=== PATIENT | male | born 1940 | race Caucasian/White ===

== ENCOUNTER 2016-12-04 11:52 | Emergency (ER) | payer OTHER ==
--- NOTE | 2016-12-04 13:04 | ED CLINICAL REPORT ---
Clinical Report - Physicians/Mid Levels [facility] [address] [place] [address] 12/04/2016 11:55 Patient: TOBI OKEEFE Time Seen: 12:08; initial patient contact. Arrived- By private vehicle. Historian- patient. HISTORY OF PRESENT ILLNESS Chief Complaint: SORE THROAT. This started about 2 days ago and is still present. It was gradual in onset and has been intermittent. Pain described as mild. The patient has had a sore throat. No mouth sores or nasal discharge or congestion. Similar symptoms previously: None. Recent medical care: Not recently seen/assessed. REVIEW OF SYSTEMS No fever, difficulty breathing, chest pain, headache or skin rash. He has had a cough. All systems otherwise negative, except as recorded above. PAST HISTORY Aortic Aneurysm. Tinnitus. URI. COPD - Chronic Obstructive Pulmonary Disease. Congestive Heart Failure. SURGERIES: Aneurysm, abd . Arm lt forarm . Back Surgery. Medications: None. Allergies: Penicillins. Tannic Acid. SOCIAL HISTORY Current every day smoker. Occasional alcohol use. No drug use. ADDITIONAL NOTES The nursing notes have been reviewed. PHYSICAL EXAM Vital Signs: 12/04/2016 12:06 BP: 153/74. HR: 58. RR: 16. O2 saturation: 98%. Temp: 97.5 F. Pain level now: 10. Have been reviewed. Hypertensive. Bradycardic. Respiratory rate normal. Temperature normal. Oxygen saturation normal. Appearance: Alert. No acute distress. Head: Normal external inspection. ENT: Ears normal. Nose normal. Mild generalized pharyngeal erythema. No trismus present. No mouth ulcerations. Neck: Trachea midline. No adenopathy. Thyroid normal. Neck supple. CVS: Normal heart rate and rhythm. Heart sounds normal. Respiratory: No respiratory distress. Breath sounds normal. Skin: No rash. Neuro: Oriented X 3. LABS, X-RAYS, AND EKG Laboratory Tests: Culture, Strep Screen: (LATA: 12/04/2016 12:20) ( MsgRcvd 12/04/2016 12:44) Final results Test Result Flag Units (Reference) RAPID STREP SCREEN - THROAT DATE: 12/04/16 NEGATIVE SCREEN: RAPID STREP SCREEN NEGATIVE; CONFIRMATION TO FOLLOW . PROGRESS AND PROCEDURES Disposition: Discharged home in good condition. Condition: good. CLINICAL IMPRESSION Acute viral pharyngitis INSTRUCTIONS Drink plenty of fluids. Do not smoke- provided smoking cessation materials. Seek medical help to quit smoking. (Take Motrin every 6 hours as needed for the pain). Your Current Medications: CONTINUE TAKING THE FOLLOWING MEDICATIONS: None*. Follow-up: Follow up with your doctor in about two days if not better. Call for an appointment. Screening today revealed the patient's blood pressure to be in the hypertensive range. The patient should follow up with a primary care provider for blood pressure management. (Electronically signed by Jagdish Patino Dr. 12/04/2016 22:25)
--- NOTE | 2016-12-04 13:04 | ED NURSING NOTES ---
Clinical Report - Nurses [facility] [address] [place] [address] 12/04/2016 11:55 [id number] TRI[facility] Triage time 12:06. Acuity: LEVEL 3. Chief Complaint: SORE THROAT and ("feels like a gland, deep in the muscle', sometimes it makes me hurt when I swallow".). Alert. No acute distress. SEPSIS SCREEN: Sepsis Screen: negative. Negative (no infection suspected/documented). ZOE COMA SCORE: Zoe Coma Scale: 15- eyes open spontaneously (4); best verbal response- oriented x 4 (5); best motor response- obeys commands (6). --12:15 Eunice Mendoza R.N. 12:06 12/04/16. BP: 153/74. HR: 58. RR: 16. O2 saturation: 98%. Temp: 97.5 F. Pain level now: 05/31. --12:15 Eunice Mendoza R.N. 12:06 12/04/16. BP: 153/74. HR: 58. RR: 16. O2 saturation: 98%. Temp: 97.5 F. Pain level now: 05/31. --12:15 Eunice Mendoza R.N. Weight: 31.7 kg stated. Height/Length: 68 inches Per Patient. BMI: 10.6. --12:09 Eunice Mendoza R.N. Medications None. --12:11 Eunice Mendoza R.N. Allergies Penicillins. Tannic Acid. --12:11 Eunice Mendoza R.N. Medication/allergy information source: the patient. --12:15 Eunice Mendoza R.N. History Arrived by private vehicle. Historian: patient. Primary physician ([facility]). Onset. (Since monday morning.). ( Rt side throat). SOCIAL HX: Heavy tobacco smoker- less than 1 pack per day. Occasional alcohol use. No drug use. FALL RISK ASSESSMENT: Fall risk assessment completed. No fall risk identified. NUTRITIONAL RISK ASSESSMENT: The nutritional risk assessment revealed no deficiencies. FUNCTIONAL ASSESSMENT: Functional assessment: no impairments noted. LEARNING NEEDS ASSESSMENT: The learning needs assessment revealed no barriers. SKIN INTEGRITY ASSESSMENT: Skin integrity risk assessment completed. No skin integrity risk identified. --12:15 Eunice Mendoza R.N. PROBLEMS: Aortic Aneurysm. Tinnitus. URI. COPD - Chronic Obstructive Pulmonary Disease. Congestive Heart Failure. --12:13 Eunice Mendoza R.N. ADDITIONAL SURGERIES: Aneurysm, abd . Arm lt forarm . Back Surgery. --12:13 Eunice Mendoza R.N. Interventions ID band on patient. To room. --12:15 Eunice Mendoza R.N. PHYSICAL ASSESSMENT Ambulatory to room. Patient gowned. GENERAL / NEURO / PSYCH: Alert. Oriented X 4. Appears in pain and anxious. HEENT: Mucous membranes are pink. RESPIRATORY: Respirations not labored. CVS: Capillary refill less than 2 seconds. SKIN: Skin is warm and dry. Normal skin turgor. --12:15 Eunice Mendoza R.N. NURSING PROGRESS NOTES Patient gowned. Head of bed elevated. Two patient identifiers checked. Call light placed in reach. Side rails up x 2. Bed placed in lowest position. Brakes of bed on. Patient ready for evaluation. --12:16 Eunice Mendoza R.N. DISPOSITION / DISCHARGE 13:05. Condition at departure: unchanged. No learning barriers present. Discharge instructions provided and reviewed with the patient. Patient verbalized understanding. Written instructions provided in [place]. The patient was discharged home. He left the Emergency Department ambulatory and via private vehicle. Patient driving. Medication list reviewed and validated. --13:28 Eunice Mendoza R.N. 13:05 12/04/16. BP: 132/69. HR: 89. RR: 18. O2 saturation: 97% on room air. Temp: deferred. Pain level now: 07/01. 12:06 12/04/16. BP: 153/74. HR: 58. RR: 16. O2 saturation: 98%. Temp: 97.5 F. Pain level now: 05/31. --13:28 Eunice Mendoza R.N. Locked/Released at 12/04/2016 13:28 by Eunice Mendoza R.N.
--- NOTE | 2016-12-04 13:04 | ED ORDER SUMMARY ---
..... Patient: TOBI OKEEFE OrderSheet [facility] VisitID: [id number] [address] [place] [address] 76y, M Registration Date/Time: 12/04/2016 ORDER SHEET Weight: 31.7 kg (stated) Allergies: Penicillins, Tannic Acid GENERAL ORDERS: Culture, Strep Screen Urgent (12:26 12/04/2016 Pepper Sánchez) ([facility] 12:29 Magui) (13:05 Flor Mcgraw) MEDICATION ORDERS: IV FLUIDS: ORDER SHEET NOTES: [Electronically signed by Eunice Mendoza R.N. (13:28 12/04/2016)] [Electronically signed by Jagdish Patino Dr. (22:25 12/04/2016)] [Electronically locked/signed by Eunice Mendoza R.N. (13:28 12/04/2016)]
--- NOTE | 2016-12-04 13:04 | ED CLINICAL REPORT ---
Clinical Report - Physicians/Mid Levels [facility] [address] [place] [address] 12/04/2016 11:55 Patient: TOBI OKEEFE Time Seen: 12:08; initial patient contact. Arrived- By private vehicle. Historian- patient. HISTORY OF PRESENT ILLNESS Chief Complaint: SORE THROAT. This started about 2 days ago and is still present. It was gradual in onset and has been intermittent. Pain described as mild. The patient has had a sore throat. No mouth sores or nasal discharge or congestion. Similar symptoms previously: None. Recent medical care: Not recently seen/assessed. REVIEW OF SYSTEMS No fever, difficulty breathing, chest pain, headache or skin rash. He has had a cough. All systems otherwise negative, except as recorded above. PAST HISTORY Aortic Aneurysm. Tinnitus. URI. COPD - Chronic Obstructive Pulmonary Disease. Congestive Heart Failure. SURGERIES: Aneurysm, abd . Arm lt forarm . Back Surgery. Medications: None. Allergies: Penicillins. Tannic Acid. SOCIAL HISTORY Current every day smoker. Occasional alcohol use. No drug use. ADDITIONAL NOTES The nursing notes have been reviewed. PHYSICAL EXAM Vital Signs: 12/04/2016 12:06 BP: 153/74. HR: 58. RR: 16. O2 saturation: 98%. Temp: 97.5 F. Pain level now: 10. Have been reviewed. Hypertensive. Bradycardic. Respiratory rate normal. Temperature normal. Oxygen saturation normal. Appearance: Alert. No acute distress. Head: Normal external inspection. ENT: Ears normal. Nose normal. Mild generalized pharyngeal erythema. No trismus present. No mouth ulcerations. Neck: Trachea midline. No adenopathy. Thyroid normal. Neck supple. CVS: Normal heart rate and rhythm. Heart sounds normal. Respiratory: No respiratory distress. Breath sounds normal. Skin: No rash. Neuro: Oriented X 3. LABS, X-RAYS, AND EKG Laboratory Tests: Culture, Strep Screen: (LATA: 12/04/2016 12:20) ( MsgRcvd 12/04/2016 12:44) Final results Test Result Flag Units (Reference) RAPID STREP SCREEN - THROAT DATE: 12/04/16 NEGATIVE SCREEN: RAPID STREP SCREEN NEGATIVE; CONFIRMATION TO FOLLOW . PROGRESS AND PROCEDURES Disposition: Discharged home in good condition. Condition: good. CLINICAL IMPRESSION Acute viral pharyngitis INSTRUCTIONS Drink plenty of fluids. Do not smoke- provided smoking cessation materials. Seek medical help to quit smoking. (Take Motrin every 6 hours as needed for the pain). Your Current Medications: CONTINUE TAKING THE FOLLOWING MEDICATIONS: None*. Follow-up: Follow up with your doctor in about two days if not better. Call for an appointment. Screening today revealed the patient's blood pressure to be in the hypertensive range. The patient should follow up with a primary care provider for blood pressure management. (Electronically signed by Jagdish Patino Dr. 12/04/2016 22:25)
--- NOTE | 2016-12-04 13:04 | ED ORDER SUMMARY ---
..... Patient: TOBI OKEEFE OrderSheet [facility] VisitID: [id number] [address] [place] [address] 76y, M Registration Date/Time: 12/04/2016 ORDER SHEET Weight: 31.7 kg (stated) Allergies: Penicillins, Tannic Acid GENERAL ORDERS: Culture, Strep Screen Urgent (12:26 12/04/2016 Pepper Sánchez) ([facility] 12:29 Magui) (13:05 Flor Mcgraw) MEDICATION ORDERS: IV FLUIDS: ORDER SHEET NOTES: [Electronically signed by Eunice Mendoza R.N. (13:28 12/04/2016)] [Electronically signed by Jagdish Patino Dr. (22:25 12/04/2016)] [Electronically locked/signed by Eunice Mendoza R.N. (13:28 12/04/2016)]
--- NOTE | 2016-12-04 22:25 | ED MED RECONCILIATION SUMMARY ---
Patient: TOBI OKEEFE Medication Reconciliation Report [facility] VisitID: [id number] [address] [place] [address] 76y, M Registration Date/Time: 12/04/2016 Weight: 31.7 kg Height/Length: 68 in. BMI: 10.6 ALLERGIES: Penicillins, Tannic Acid The patient's Home Medications are listed below: NONE. The source(s) of the original Home Medication information: patient The following Medications were given to the patient in the Emergency Department: None. The following Medications were prescribed to the patient: None.
--- NOTE | 2016-12-04 22:25 | ED DISCHARGE INSTRUCTIONS ---
Patient: TOBI OKEEFE General Instructions [facility] VisitID: [id number] [place] [address] 76y, M Registration Date/Time: 12/04/2016 Acute viral pharyngitis INSTRUCTIONS Drink plenty of fluids. Do not smoke- provided smoking cessation materials. Seek medical help to quit smoking. (Take Motrin every 6 hours as needed for the pain). Your Current Medications: CONTINUE TAKING THE FOLLOWING MEDICATIONS: None*. Follow-up: Follow up with your doctor in about two days if not better. Call for an appointment. Screening today revealed the patient's blood pressure to be in the hypertensive range. The patient should follow up with a primary care provider for blood pressure management. ADDITIONAL INFORMATION Viral Pharyngitis (Sore Throat) Your throat pain is due to an infection called "Viral Pharyngitis", commonly known as "Sore Throat". This is a contagious illness. It is spread through the air by coughing, kissing or by touching others after touching your mouth or nose. Symptoms include throat pain worse with swallowing, aching all over, headache and fever. Unlike strep throat, which is a bacterial infection, this illness does not require treatment with an antibiotic. Home Care: If your symptoms are severe, rest at home for the first 2-3 days. Children: Use acetaminophen (Tylenol) for fever, fussiness or discomfort. In infants over six months of age, you may use ibuprofen (Children's Motrin) instead of Tylenol. [NOTE: If your child has chronic liver or kidney disease or ever had a stomach ulcer or GI bleeding, talk with your dixie doctor before using these medicines.] (Aspirin should never be used in anyone under 18 years of age who is ill with a fever. It may cause severe liver damage.) Adults: You may use acetaminophen (Tylenol) or ibuprofen (Motrin, Advil) to control pain or fever, unless another medicine was prescribed. [NOTE: If you have chronic liver or kidney disease or ever had a stomach ulcer or GI bleeding, talk with your doctor before using these medicines.] Throat lozenges or sprays (Chloraseptic and others) will reduce pain. Gargling with warm salt water will also reduce throat pain. Dissolve 1/2 teaspoon of salt in 1 glass of warm water. This is especially useful just before meals. Follow Up with your doctor or as directed by our staff if you are not improving over the next week. Get Prompt Medical Attention if any of the following occur: Fever over 100.5F (38.0C) oral, or over 101.5F (38.6C) rectal for more than three days New or worsening ear pain, sinus pain or headache Painful lumps in the back of your neck Unable to swallow liquids or open your mouth wide due to throat pain Trouble breathing or noisy breathing Muffled voice New rash How To Quit Smoking Smoking is one of the hardest habits to break. About half of all those who have ever smoked have been able to quit, and most of those (about 70%) who still smoke want to quit. Here are some of the best ways to stop smoking. Keep Trying: It takes most smokers about 8 tries before they are finally able to fully quit. So, the more often you try and fail, the better your chance of quitting the next time! So, don't give up! Go Cold [place]: Most ex-smokers quit cold turkey. Trying to cut back gradually doesn't seem to work as well, perhaps because it continues the smoking habit. Also, it is possible to fool yourself by inhaling more while smoking fewer cigarettes. This results in the same amount of nicotine in your body! Get Support: Support programs can make an important difference, especially for the heavy smoker. These groups offer lectures, methods to change your behavior and peer support. Call the free national Quitline for more information. 830-USAT-WUG (405-387-1310). Low-cost or free programs are offered by many hospitals, local chapters of the [place] [employer] (193-864-1214) and the [place] [employer] (057-829-5764). Support at home is important too. Non-smokers can help by offering praise and encouragement. If the smoker fails to quit, encourage them to try again! Jzlm-Hum-Qglrfuw Medicines: For those who can't quit on their own, Nicotine Replacement Therapy (NRT) may make quitting much easier. Certain aids such as the nicotine patch, gum and lozenge are available without a prescription. However, it is best to use these under the guidance of your doctor. The skin patch provides a steady supply of nicotine to the body. Nicotine gum and lozenge gives temporary bursts of low levels of nicotine. Both methods take the edge off the craving for cigarettes. WARNING: If you feel symptoms of nicotine overdose, such as nausea, vomiting, dizziness, weakness, or fast heartbeat, stop using these and see your doctor. Prescription Medicines: After evaluating your smoking patterns and prior attempts at quitting, your doctor may offer a prescription medicine such as bupropion (Zyban, Wellbutrin), varenicline (Chantix, Champix), a niocotine inhaler or nasal spray. Each has its unique advantage and side effects which your doctor can review with you. Health Benefits Of Quitting: The benefits of quitting start right away and keep improving the longer you go without smokin minutes: blood pressure and pulse return to normal 8 hours: oxygen levels return to normal 2 days: ability to smell and taste begins to improve as damaged nerves start to regrow 2-3 weeks: circulation and lung function improves 1-9 months: decreased cough, congestion and shortness of breath; less tired 1 year: risk of heart attack decreases by half 5 years: risk of lung cancer decreases by half; risk of stroke becomes the same as a non-smoker For information about how to quit smoking, visit the following links: National Cancer [place] , Clearing the Air, Quit Smoking Today - an online booklet. http://www.smokefree.gov/pubs/clearing_the_air.pdf Smokefree.gov http://smokefree.gov/ QuitNet http://www.quitnet.com/ You have been given the following additional information: Pharyngitis, Viral Smoking Cessation (Electronically signed by Jagdish Patino Dr. 12/04/2016 22:25)
--- NOTE | 2016-12-04 22:25 | ED MED RECONCILIATION SUMMARY ---
Patient: TOBI OKEEFE Medication Reconciliation Report [facility] VisitID: [id number] [address] [place] [place] [address] 76y, M Registration Date/Time: 12/04/2016 Weight: 31.7 kg Height/Length: 68 in. BMI: 10.6 ALLERGIES: Penicillins, Tannic Acid The patient's Home Medications are listed below: NONE. The source(s) of the original Home Medication information: patient The following Medications were given to the patient in the Emergency Department: None. The following Medications were prescribed to the patient: None.
--- NOTE | 2016-12-04 22:25 | ED DISCHARGE INSTRUCTIONS ---
Patient: TOBI OKEEFE General Instructions [facility] VisitID: [id number] [place] [address] 76y, M Registration Date/Time: 12/04/2016 Acute viral pharyngitis INSTRUCTIONS Drink plenty of fluids. Do not smoke- provided smoking cessation materials. Seek medical help to quit smoking. (Take Motrin every 6 hours as needed for the pain). Your Current Medications: CONTINUE TAKING THE FOLLOWING MEDICATIONS: None*. Follow-up: Follow up with your doctor in about two days if not better. Call for an appointment. Screening today revealed the patient's blood pressure to be in the hypertensive range. The patient should follow up with a primary care provider for blood pressure management. ADDITIONAL INFORMATION Viral Pharyngitis (Sore Throat) Your throat pain is due to an infection called "Viral Pharyngitis", commonly known as "Sore Throat". This is a contagious illness. It is spread through the air by coughing, kissing or by touching others after touching your mouth or nose. Symptoms include throat pain worse with swallowing, aching all over, headache and fever. Unlike strep throat, which is a bacterial infection, this illness does not require treatment with an antibiotic. Home Care: If your symptoms are severe, rest at home for the first 2-3 days. Children: Use acetaminophen (Tylenol) for fever, fussiness or discomfort. In infants over six months of age, you may use ibuprofen (Children's Motrin) instead of Tylenol. [NOTE: If your child has chronic liver or kidney disease or ever had a stomach ulcer or GI bleeding, talk with your dixie doctor before using these medicines.] (Aspirin should never be used in anyone under 18 years of age who is ill with a fever. It may cause severe liver damage.) Adults: You may use acetaminophen (Tylenol) or ibuprofen (Motrin, Advil) to control pain or fever, unless another medicine was prescribed. [NOTE: If you have chronic liver or kidney disease or ever had a stomach ulcer or GI bleeding, talk with your doctor before using these medicines.] Throat lozenges or sprays (Chloraseptic and others) will reduce pain. Gargling with warm salt water will also reduce throat pain. Dissolve 1/2 teaspoon of salt in 1 glass of warm water. This is especially useful just before meals. Follow Up with your doctor or as directed by our staff if you are not improving over the next week. Get Prompt Medical Attention if any of the following occur: Fever over 100.5F (38.0C) oral, or over 101.5F (38.6C) rectal for more than three days New or worsening ear pain, sinus pain or headache Painful lumps in the back of your neck Unable to swallow liquids or open your mouth wide due to throat pain Trouble breathing or noisy breathing Muffled voice New rash How To Quit Smoking Smoking is one of the hardest habits to break. About half of all those who have ever smoked have been able to quit, and most of those (about 70%) who still smoke want to quit. Here are some of the best ways to stop smoking. Keep Trying: It takes most smokers about 8 tries before they are finally able to fully quit. So, the more often you try and fail, the better your chance of quitting the next time! So, don't give up! Go Cold [place]: Most ex-smokers quit cold turkey. Trying to cut back gradually doesn't seem to work as well, perhaps because it continues the smoking habit. Also, it is possible to fool yourself by inhaling more while smoking fewer cigarettes. This results in the same amount of nicotine in your body! Get Support: Support programs can make an important difference, especially for the heavy smoker. These groups offer lectures, methods to change your behavior and peer support. Call the free national Quitline for more information. 413-PTXB-ITH (142-173-5732). Low-cost or free programs are offered by many hospitals, local chapters of the [place] [employer] (403-153-6987) and the [place] [employer] (955-666-9540). Support at home is important too. Non-smokers can help by offering praise and encouragement. If the smoker fails to quit, encourage them to try again! Ywsn-Ecv-Fstjogz Medicines: For those who can't quit on their own, Nicotine Replacement Therapy (NRT) may make quitting much easier. Certain aids such as the nicotine patch, gum and lozenge are available without a prescription. However, it is best to use these under the guidance of your doctor. The skin patch provides a steady supply of nicotine to the body. Nicotine gum and lozenge gives temporary bursts of low levels of nicotine. Both methods take the edge off the craving for cigarettes. WARNING: If you feel symptoms of nicotine overdose, such as nausea, vomiting, dizziness, weakness, or fast heartbeat, stop using these and see your doctor. Prescription Medicines: After evaluating your smoking patterns and prior attempts at quitting, your doctor may offer a prescription medicine such as bupropion (Zyban, Wellbutrin), varenicline (Chantix, Champix), a niocotine inhaler or nasal spray. Each has its unique advantage and side effects which your doctor can review with you. Health Benefits Of Quitting: The benefits of quitting start right away and keep improving the longer you go without smokin minutes: blood pressure and pulse return to normal 8 hours: oxygen levels return to normal 2 days: ability to smell and taste begins to improve as damaged nerves start to regrow 2-3 weeks: circulation and lung function improves 1-9 months: decreased cough, congestion and shortness of breath; less tired 1 year: risk of heart attack decreases by half 5 years: risk of lung cancer decreases by half; risk of stroke becomes the same as a non-smoker For information about how to quit smoking, visit the following links: National Cancer [place] , Clearing the Air, Quit Smoking Today - an online booklet. http://www.smokefree.gov/pubs/clearing_the_air.pdf Smokefree.gov http://smokefree.gov/ QuitNet http://www.quitnet.com/ You have been given the following additional information: Pharyngitis, Viral Smoking Cessation (Electronically signed by Jagdish Patino Dr. 12/04/2016 22:25)
--- NOTE | 2016-12-04 22:25 | ED MAR SUMMARY ---
..... Medication Administration Record [facility] [address] [place], [place] [id number] Patient: TOBI OKEEFE Visit ID: [id number], M Weight: 31.7 kg Height/Length: 68 in BMI: 10.6 ALLERGIES: Penicillins, Tannic Acid
--- NOTE | 2016-12-04 22:25 | ED MAR SUMMARY ---
..... Medication Administration Record [facility] [address] [place], [place] [id number] Patient: TOBI OKEEFE Visit ID: [id number], M Weight: 31.7 kg Height/Length: 68 in BMI: 10.6 ALLERGIES: Penicillins, Tannic Acid
== END 2016-12-04 13:05 | disposition home or self-care (01) ==
LOC: ED SRH 11:52
DX: J02.9 Acute pharyngitis, unspecified (principal); F17.200 Nicotine dependence, unspecified, uncomplicated; J44.9 Chronic obstructive pulmonary disease, unspecified; I50.9 Heart failure, unspecified; Z88.0 Allergy status to penicillin
CPT/HCPCS: 90154; 90159